=== PATIENT | female | born 1935 | race Asian ===

== ENCOUNTER 2019-06-22 20:48 | Inpatient (IN) | payer MEDICARE, OTHER ==
[~2019-06-22] VITALS: Ht 152.4 cm; Wt 54.4 kg
--- NOTE | 2019-06-22 21:03 | Emergency Room Report ---
History of Present Illness General Chief Complaint: Generalized Weakness Source: Patient, Medical Record Present Illness HPI Is 84-year-old female coming from a [facility]. She has a history of high blood pressure. She presents with chief complaint of noncompliance with medication, not eating, being aggressive at the [facility]. Onset for last few days. Patient denies any symptoms. No nausea no vomiting. No fever chills but denies any other complaint. She says she felt fine. Allergies: Coded Allergies: No Known Allergies (Unverified , 06/22/19) Patient History Past Medical History: see triage record, old chart reviewed, HTN Past Surgical History: none Pertinent Family History: none Social History: Denies: smoking Now: No Immunizations: other Reviewed Nursing Documentation: PMH: Agreed; PSxH: Agreed Review of Systems Eye: Denies: eye pain, blurred vision ENT: Denies: ear pain, nose congestion, throat swelling Respiratory: Denies: cough, shortness of breath Cardiovascular: Denies: chest pain, palpitations Gastrointestinal: Denies: abdominal pain, diarrhea, nausea, vomiting Musculoskeletal: Denies: back pain, joint pain Skin: Denies: rash Neurological: Denies: headache, numbness Endocrine: Denies: increased thirst, increased urine Hematologic/Lymphatic: Denies: easy bruising All Other Systems: negative except mentioned in HPI Physical Exam Vital Signs Date Time Temp Pulse Resp B/P (MAP) Pulse Ox O2 Delivery O2 Flow Rate FiO2 06/22/19 20:44 98.1 76 18 165/66 (99) 97 Room Air Vitals with high blood pressure Sp02 EP Interpretation: reviewed, normal General Appearance: well appearing, no apparent distress, alert Head: normocephalic, atraumatic Eyes: bilateral eye PERRL, bilateral eye EOMI ENT: hearing grossly normal, normal pharynx Neck: full range of motion, supple, no meningismus Respiratory: chest non-tender, lungs clear, normal breath sounds Cardiovascular #1: regular rate, rhythm, no murmur Gastrointestinal: normal bowel sounds, non tender, no mass, no organomegaly, no bruit, non-distended Musculoskeletal: back normal, gait/station normal, normal range of motion Psychiatric: mood/affect normal Medical Decision Making Diagnostic Impression: Primary Impression: Agitation Additional Impressions: UTI (urinary tract infection) Qualified Codes: N30.00 - Acute cystitis without hematuria FTT (failure to thrive) in adult Dehydration ROSALBA (acute kidney injury) ER Course This 84-year-old female presents with agitation and increasing delirium and noncompliance. Probably worsening of her dementia secondary to UTI. Antibiotics given. IV fluids given. I had to sedate patient with Ativan to get blood work and urine. No evidence of CVA, ACS, PE, pneumonia to name a few. I discussed the case with Dr. Elizondo who will admit. EKG Diagnostic Results Rate: normal Rhythm: NSR ST Segments: no acute changes Rhythm Strip Diag. Results EP Interpretation: yes Rate: 80 Rhythm: NSR, no PVC's, no ectopy Chest X-Ray Diagnostic Results Chest X-Ray Diagnostic Results : Chest X-Ray Ordered: Yes # of Views/Limited/Complete: 1 View Indication: Shortness of Breath EP Interpretation: Yes Interpretation: no consolidation, no effusion, no pneumothorax, no acute cardiopulmonary disease Impression: No acute disease Electronically Signed by: Gulshan Fonseca MD Last Vital Signs Date Time Temp Pulse Resp B/P (MAP) Pulse Ox O2 Delivery O2 Flow Rate FiO2 06/22/19 20:44 98.1 76 18 165/66 (99) 97 Room Air Status: improved Disposition: ADMITTED INPATIENT Condition: Serious Gulshan Fonseca MD Jun 22, 2019 21:03
--- NOTE | 2019-06-22 21:10 | NUR ---
ED Nurse Note: Pt brought in by THIAGO from [facility] c/c FTT, AMS, and aggressive behavior. pt currently AA&ox1 but refused to answer question, using foul language, demonstrating combative behavior such as scratching and kicking. ERMD aware of pt's condition. will cont monitor.
[2019-06-22] MEDS ORDERED: LORazepam Inj 2mg/ml 1ml IM ONE (21:30)
[2019-06-22 21:52] LABS: ANION GAP 10 mmol/L (5-15); BLOOD UREA NITROGEN 21 mg/dL (7-18); CALCIUM 9.1 MG/DL (8.5-10.1); CARBON DIOXIDE 23 MMOL/L (21-32); CHLORIDE 112 MMOL/L (98-107); POTASSIUM 3.6 MMOL/L (3.5-5.1); SODIUM 145 MMOL/L (136-145)
[2019-06-22 21:53] LABS: APPEARANCE,URINE CLEAR; BILIRUBIN, URINE NEGATIVE (NEGATIVE); COLOR,URINE PALE YELLOW; GLUCOSE, URINE (UA) NEGATIVE (NEGATIVE); KETONES,URINE NEGATIVE (NEGATIVE); LEUKOCYTE ESTERASE ,URINE 2+ (NEGATIVE); NITRITE,URINE NEGATIVE (NEGATIVE); PH,URINE 6 (4.5-8.0); PROTEIN,URINE 4+ (NEGATIVE); UROBILINOGEN,URINE NORMAL MG/DL (0.0-1.0)
[2019-06-22 22:00] VITALS: BP 150/68
--- NOTE | 2019-06-22 22:00 | NUR ---
ED Nurse Note: pt AA&ox1, gcs=14, confused, skin warm and dry, resp even and unlabored on RA, -n/v/d, noted skin abrasion on right elbow, noted skin discoloration BUE but prominent on left arm, noted pressure ulcer on posterior sacral area. pt vss, sinus rhythm on court recording monitor, will cont monitor.
[2019-06-22 22:04] LABS: BASOPHILS % (AUTO) 0.6 % (0.0-2.0); EOSINOPHILS % (AUTO) 1.5 % (0.0-3.0); HEMATOCRIT 31.3 % (37.0-47.0); HEMOGLOBIN 10.6 G/DL (12.0-16.0); LYMPHOCYTES % (AUTO) 26.4 % (20.0-45.0); MEAN CORPUSCULAR VOLUME 92 FL (80-99); MONOCYTES % (AUTO) 6.2 % (1.0-10.0); NEUTROPHILS % (AUTO) 65.4 % (45.0-75.0); PLATELET COUNT 226 K/UL (150-450); RED CELL DISTRIBUTION WIDTH 13.9 % (11.6-14.8); WHITE BLOOD COUNT 7.8 K/UL (4.8-10.8)
[2019-06-22] MEDS ORDERED: cefTRIAXone 1 GM in NS 55 ML IVPB ONE (22:15)
[2019-06-22] MEDS ORDERED: VITAMIN C500 M1 ORAL (22:25)
[2019-06-22] MEDS ORDERED: PANTOPRAZOLE SO40 MG ORAL (22:26)
[2019-06-22] MEDS ORDERED: OS-CAL 500+D31 EAC1 PO (22:26)
[2019-06-22] MEDS ORDERED: AMLODIPINE BESYL5 MG ORAL (22:27)
[2019-06-22] MEDS ORDERED: ACETAMINOPHEN120 MG ORAL (22:28)
[2019-06-22] MEDS ORDERED: [UNRECOGNIZED DRUG - OTHER] TP (22:28)
[2019-06-22] MEDS ORDERED: CATAPRES0.1 MG ORAL (22:29)
[2019-06-22] MEDS ORDERED: Haloperidol 5mg/ml Inj IM ONE (22:30)
[2019-06-22] MEDS ORDERED: ZINC SULFATE220 M1 ORAL (22:31)
--- NOTE | 2019-06-22 22:37 | NUR ---
ED Nurse Note: REPORT GIVEN TO SHARRON HAMMOND FROM [facility].
--- NOTE | 2019-06-22 22:45 | NUR ---
NURSE NOTES: Received report from SHARRON Hedrick in ER. Awaiting patient.
--- NOTE | 2019-06-22 22:55 | NUR ---
ED Nurse Note: pt transferred to [facility], all belongings sent w/ pt w/ completed list, iv intact and patent, vss, resp even and unlabored on RA, care endorsed to RN Magaly.
--- NOTE | 2019-06-22 23:10 | NUR ---
NURSE NOTES: Received patient via critical power install technician. Patient A&Ox1 to name. On room air, no signs of distress or labored breathing. IV intact, patent, and infusing fluids from ER. Belongings validated. Bed in lowest position with call light in reach. Will contact MD for orders and continue to monitor.
[2019-06-22 23:15] VITALS: BP 169/68
[2019-06-23 04:00] VITALS: BP 160/72
[2019-06-23] MEDS ORDERED: Aluminum Hydroxide Gel Susp 15ml ORAL PRN (04:30)
[2019-06-23] MEDS ORDERED: Vancomycin 1gm in D5W 275ml IVPB SCH (05:00)
--- NOTE | 2019-06-23 07:16 | NUR ---
HAND-OFF: Report given to SHARRON Ibrahim.
[2019-06-23 07:20] LABS: BASOPHILS % (AUTO) 0.8 % (0.0-2.0); EOSINOPHILS % (AUTO) 2.8 % (0.0-3.0); HEMATOCRIT 29.7 % (37.0-47.0); HEMOGLOBIN 9.8 G/DL (12.0-16.0); LYMPHOCYTES % (AUTO) 26.3 % (20.0-45.0); MEAN CORPUSCULAR VOLUME 93 FL (80-99); MONOCYTES % (AUTO) 6.2 % (1.0-10.0); NEUTROPHILS % (AUTO) 63.9 % (45.0-75.0); PLATELET COUNT 222 K/UL (150-450); RED BLOOD COUNT 3.19 M/UL (4.20-5.40); RED CELL DISTRIBUTION WIDTH 13.9 % (11.6-14.8); WHITE BLOOD COUNT 6.8 K/UL (4.8-10.8)
--- NOTE | 2019-06-23 07:30 | NUR ---
NURSE NOTES: Received pt from SHARRON HAMMOND. pt is confused and orient x1. pt is in RA, no SOB or acute respiratory distress noted. pt has intact iv access LAC 20g is running well. pt is eating breakfast independently. all needs attended, bed is locked and is in the lowest position. call light within easy reach. will continue to monitor.
[2019-06-23 07:37] LABS: ANION GAP 10 mmol/L (5-15); BLOOD UREA NITROGEN 18 mg/dL (7-18); CALCIUM 8.6 MG/DL (8.5-10.1); CARBON DIOXIDE 23 MMOL/L (21-32); CHLORIDE 116 MMOL/L (98-107); CREATININE 1.7 MG/DL (0.55-1.30); POTASSIUM 3.1 MMOL/L (3.5-5.1); SODIUM 149 MMOL/L (136-145)
[2019-06-23 08:00] VITALS: BP 103/53
[2019-06-23] MEDS: Calcium Carbonate 500mg w/Vit D 200iu tab ORAL SCH (09:16)
[2019-06-23] MEDS: Piperacillin/Tazobactam 3.375 GM in NS 110 ML IVPB SCH ×2 (09:17→20:29)
[2019-06-23] MEDS: Zinc Sulfate 220mg cap ORAL SCH (09:17)
[2019-06-23] MEDS: Ascorbic Acid 500mg tab ORAL SCH (09:17)
[2019-06-23] MEDS: Heparin 5000 units/ml inj SUBQ SCH ×2 (09:18→20:37)
--- NOTE | 2019-06-23 10:25 | NUR ---
NURSE NOTES: dR mejia VISITED PT AND HE IS AWARE ABOUT L hand swollen and K 3.1, given order KCL 40MEQ PO ONCE and MRI L HAND NO CONTRAST. noted and carried out. will continue to monitor.
[2019-06-23 12:00] VITALS: BP 168/67
--- NOTE | 2019-06-23 13:18 | Cardiology Report ---
APPROVED REPORT EKG Measurement Heart [id number] OR [id number] Sinus rhythm with sinus arrhythmia with fusion complexes Nonspecific ST and T wave abnormality Abnormal ECG
[2019-06-23 14:00] VITALS: BP 149/62
[2019-06-23 16:00] VITALS: BP 130/72
--- NOTE | 2019-06-23 16:57 | NUR ---
CASE MANAGEMENT: INITIAL REVIEW 84 YO F ALEX FROM [facility] CC: NONCOMPLIANCE W/ MEDS PMHx: HTN. SI:FTT. UTI. T 98.1 HR 76 RR 18 B/P 165/66 SATS 97% ON RA CL 112 BUN 21 CR 2 GLU 120 IS: NS BOLUS X1 ATIVAN IV X1 ROCEPHIN IV X1 HALDOL IM X1 PATIENT ADMITTED TO MED/SURG 06/22/2019 @ 0337 DCP: PATIENT TO BE DISCHARGED TO SNF ONCE MEDICALLY CLEARED. PLAN OF CARE: CT HEAD PENDING MRI LEFT HAND PENDING PT EVAL Addendum: 06/23/19 at 1826 by Imelda Brown CM INTERQUAL
--- NOTE | 2019-06-23 17:00 | History and Physical Report ---
DATE OF ADMISSION: 06/22/2019 REASON FOR ADMISSION: Altered sensorium, urinary tract infection, acute renal failure, hypernatremia. HISTORY OF PRESENT ILLNESS: This is an 84-year-old female noted to be altered, hypertension, and was noted to be more labile. The patient also noted to be more aggressive and more confused. The patient was sent over for evaluation, has been admitted for the above noted possibly urinary tract infection, acute renal failure, and worsening altered mental status. The patient to some extent appears to be confused. The care discussed and reviewed. The patient's care at the alf as well reviewed. PAST MEDICAL HISTORY: Notable for prior history of sepsis, hypertension, dementia, history of wrist fracture, and osteoporosis. MEDICATIONS: Reviewed. ALLERGIES: Reviewed. SOCIAL HISTORY: The patient previously was at home, but unable to care for herself, so recently transferred to the alf. REVIEW OF SYSTEMS: Difficult to obtain. The patient however denies any significant findings at this time. She has been more agitated. She has some wrist pain. PHYSICAL EXAMINATION: GENERAL: A well-developed female. VITAL SIGNS: Blood pressure 103/53, pulse 68, respiratory rate 19, saturation 96%, temperature is 98.1. HEENT: Negative. Extraocular movements are grossly intact. Oropharynx moist. NECK: Supple. LUNGS: Fairly clear and symmetric. No rhonchi or wheezes. CARDIAC: S1, S2. Regular rate and rhythm without murmurs, rubs, or gallops. ABDOMEN: Soft, nontender, nondistended. EXTREMITIES: No cyanosis or clubbing. No edema. NEUROLOGICAL: The patient appears to be confused, nonfocal, not fully appropriate. SKIN: Noted. LABORATORY DATA: Reviewed. Sodium 149, potassium 3.1, BUN 18, creatinine 1.7. Troponin negative. Hemoglobin 9.8. Urinalysis with 5 to 10 white cells. IMPRESSION: 1. Possible urinary tract infection. 2. Altered sensorium. 3. Possible toxic metabolic encephalopathy. 4. Hypertension. 5. Evidence of anemia. 6. Possible GI bleed. 7. Acute renal failure. 8. Hypernatremia. 9. Possible neurological event. 10. Wrist fracture per history. RECOMMENDATIONS: Supportive care. Monitor clinically. IV hydration, IV antibiotics. Obtain renal evaluation. Obtain GI evaluation. Obtain CT of the head. Obtain Psychiatric evaluation. Obtain PT evaluation. We will discuss further with family as to plan of care and disposition. Royer Elizondo M.D. DR: PAMELA JOB#: [id number] CC:
--- NOTE | 2019-06-23 19:26 | NUR ---
HAND-OFF: Report given to THU MCDERMOTT.
--- NOTE | 2019-06-23 19:42 | NUR ---
NURSE NOTES: Received report from SHARRON Ibrahim. Patient is in bed, awake and confused. On room air with no signs of distress or SOB. IV is intact and running fluids at this time. No c/o pain at this time. Bed is locked and in lowest position with bed alarm activated. Call light in reach. Will continue to monitor.
[2019-06-23 20:00] VITALS: BP 156/69
[2019-06-24] VITALS: BP 141/60
[2019-06-24 04:00] VITALS: BP 163/69
--- NOTE | 2019-06-24 07:08 | NUR ---
HAND-OFF: Report given to SHARRON Garcia.
[2019-06-24 07:51] LABS: BASOPHILS % (AUTO) 0.8 % (0.0-2.0); EOSINOPHILS % (AUTO) 3.7 % (0.0-3.0); HEMATOCRIT 25.3 % (37.0-47.0); HEMOGLOBIN 8.4 G/DL (12.0-16.0); LYMPHOCYTES % (AUTO) 30.4 % (20.0-45.0); MEAN CORPUSCULAR VOLUME 94 FL (80-99); MONOCYTES % (AUTO) 9.3 % (1.0-10.0); NEUTROPHILS % (AUTO) 55.8 % (45.0-75.0); PLATELET COUNT 183 K/UL (150-450); WHITE BLOOD COUNT 6.3 K/UL (4.8-10.8)
[2019-06-24 08:00] VITALS: BP 120/66
[2019-06-24 08:03] LABS: ANION GAP 9 mmol/L (5-15); BLOOD UREA NITROGEN 16 mg/dL (7-18); CALCIUM 8.2 MG/DL (8.5-10.1); CARBON DIOXIDE 20 MMOL/L (21-32); CHLORIDE 117 MMOL/L (98-107); CREATININE 1.7 MG/DL (0.55-1.30); POTASSIUM 3.9 MMOL/L (3.5-5.1); SODIUM 146 MMOL/L (136-145)
--- NOTE | 2019-06-24 08:16 | NUR ---
NURSE NOTES: Pt awake, A/O x 2, forgetful. Sacral/L hip dressing in place. denies pain. no SOB noted. bed alarm on. call light within reach. fall precaution maintained. will continue to monitor.
--- NOTE | 2019-06-24 08:54 | General Progress Note ---
Assessment/Plan Assessment/Plan: IMPRESSION: 1. Possible urinary tract infection. 2. Altered sensorium. 3. Possible toxic metabolic encephalopathy. 4. Hypertension. 5. Evidence of anemia. 6. Possible GI bleed. 7. Acute renal failure. 8. Hypernatremia. 9. Possible neurological event. 10. Wrist fracture per history. PLAN anemia worsened gi follow up sodium still elevated- renal eval await MRI of wrist PT evaluation monitor for falls impression, plan, and exam edited and reviewed in detail care discussed with RN Subjective Allergies: Coded Allergies: No Known Allergies (Unverified , 06/22/19) Subjective care noted and reviewed all appreciated findings discussed Objective Last 24 Hour Vital Signs Date Time Temp Pulse Resp B/P (MAP) Pulse Ox O2 Delivery O2 Flow Rate FiO2 06/24/19 04:26 163/69 06/24/19 04:00 98.1 79 18 163/69 (100) 98 06/24/19 00:00 98.0 82 18 141/60 (87) 98 06/23/19 22:39 156/69 06/23/19 21:00 Room Air 06/23/19 20:00 97.7 95 18 156/69 (98) 96 06/23/19 16:00 97.8 86 19 130/72 (91) 97 06/23/19 14:00 149/62 (91) 06/23/19 12:14 168/67 06/23/19 12:00 98.0 80 18 168/67 (100) 99 06/23/19 09:17 68 103/53 06/23/19 09:00 Room Air Intake and Output 06/23/19 06/24/19 19:00 07:00 Intake Total 2110.0 ml 1280 ml Balance 2110.0 ml 1280 ml Intake Oral 480 ml IV Total 1310.0 ml 800 ml Other 800 ml # Voids 4 # Bowel Movements 3 Laboratory Tests 06/24/19 06:45: White Blood Count 6.3, Red Blood Count 2.70L, Hemoglobin 8.4L, Hematocrit 25.3L , Mean Corpuscular Volume 94, Mean Corpuscular Hemoglobin 31.2H, Mean Corpuscular Hemoglobin Concent 33.3, Red Cell Distribution Width 14.0, Platelet Count 183, Mean Platelet Volume 7.6, Neutrophils (%) (Auto) 55.8, Lymphocytes (% ) (Auto) 30.4, Monocytes (%) (Auto) 9.3, Eosinophils (%) (Auto) 3.7H, Basophils (%) (Auto) 0.8, Sodium Level 146H, Potassium Level 3.9, Chloride Level 117H, Carbon Dioxide Level 20L, Anion Gap 9, Blood Urea Nitrogen 16, Creatinine 1.7H, Estimat Glomerular Filtration Rate , Glucose Level 87, Calcium Level 8.2L Height (Feet): 5 Height (Inches): 0.00 Weight (Pounds): 120 Objective GENERAL: A well-developed female. NAD HEENT: Negative. Extraocular movements are grossly intact. Oropharynx moist. NECK: Supple. LUNGS: Fairly clear and symmetric. No rhonchi or wheezes. CARDIAC: S1, S2. Regular rate and rhythm without murmurs, rubs, or gallops. ABDOMEN: Soft, nontender, nondistended. no HSM EXTREMITIES: No cyanosis or clubbing. No edema. mild discomfort left writs NEUROLOGICAL: The patient appears to be confused, nonfocal, pleasant SKIN: Noted. Royer Elizondo MD Jun 24, 2019 08:54
[2019-06-24] MEDS: Calcium Carbonate 500mg w/Vit D 200iu tab ORAL SCH (09:14)
[2019-06-24] MEDS: Ascorbic Acid 500mg tab ORAL SCH (09:14)
[2019-06-24] MEDS: Zinc Sulfate 220mg cap ORAL SCH (09:14)
[2019-06-24] MEDS: Heparin 5000 units/ml inj SUBQ SCH ×2 (09:17→20:40)
[2019-06-24] MEDS: Piperacillin/Tazobactam 3.375 GM in NS 110 ML IVPB SCH ×2 (09:18→20:31)
[2019-06-24 12:00] VITALS: BP 122/63
--- NOTE | 2019-06-24 13:04 | Diagnostic Imaging Report ---
CT HEAD: No acute intracranial process. Involutional changes with small vessel disease. Encephalomalacia centered in the left temporal lobe. Surgical changes in the left calvarium. 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 Right mastoidectomy.
--- NOTE | 2019-06-24 13:33 | NUR ---
RD ASSESSMENT & RECOMMENDATIONS SEE CARE ACTIVITY FOR COMPLETE ASSESSMENT DAILY ESTIMATED NEEDS: Needs based on Wound, 54.5kg 25-35 kcals/kg 4864-6504 total kcals 1.25-1.5 g protein/kg 68-82 g total protein 25-30ml/kcal mL/kg 9458-2187 total fluid mLs NUTRITION DIAGNOSIS: Increased pro needs r/t wound healing as evidenced by L hip open wound, sacral redness. CURRENT DIET: MS chopped PO DIET RECOMMENDATIONS: Regular diet/ texture per TAR ROOFER ADDITIONAL RECOMMENDATIONS: 1) Obtain a accurate CBW 2) F/up w/ Wound care eval: add NIXON BID 3) PO intake is variable, rec added snacks Ensure qdaily 4) Monitor hydration status/ elev NA
[2019-06-24 16:00] VITALS: BP 131/67
--- NOTE | 2019-06-24 16:19 | NUR ---
NURSE NOTES: pt depressed, stated that she doesn't want to live, left message to MD, for psych consult, waiting for call back. will continue to monitor.
--- NOTE | 2019-06-24 16:48 | NUR ---
PT Note PT ketan completed, treatment initiated. Patient has muscle weakness and decreased postural stability making her at a risk for falls. Patient needs PT to increase her muscle strength and balance to improve her safety in mobility and gait. Addendum: 06/24/19 at 1649 by ANDER HUNT PT Amended: Links added.
[2019-06-24] MEDS ORDERED: Vancomycin 1gm in D5W 275ml IVPB SCH (18:00)
--- NOTE | 2019-06-24 18:30 | Consultation ---
DATE OF CONSULTATION: 06/24/2019 CONSULTING PHYSICIAN: Lavon Kenny M.D. CHIEF COMPLAINT: Anemia. HISTORY OF PRESENT ILLNESS: Most of the history obtained per chart. This is an 84-year-old female patient was transferred altered mental status and hypertension. The patient being more aggressive, not eating well, and also the patient was found to be anemic. So, GI consult has been requested for evaluation. The patient is a poor historian. PAST MEDICAL HISTORY: 1. Hypertension. 2. Dementia. 3. Osteoporosis. ALLERGIES: No known drug allergies. MEDICATIONS: Please see medication reconciliation list. SOCIAL HISTORY: Currently lives in a retirement. No recent history of tobacco, alcohol, or drug abuse. REVIEW OF SYSTEMS: Limited. PAST SURGICAL HISTORY: Unknown. PHYSICAL EXAMINATION: VITAL SIGNS: Temperature is 98, pulse 79, respirations 18, blood pressure is 160/69. HEENT: Normocephalic and atraumatic conjunctiva. NECK: Supple. No obvious evidence of lymphadenopathy. CARDIOVASCULAR: Regular rate and rhythm. Plus S1 and S2. LUNGS: Clear to auscultation bilaterally. ABDOMEN: Positive bowel sounds. Soft and nontender. No rebound. No guarding. No peritoneal sign. EXTREMITIES: No cyanosis, no clubbing, no edema. LABORATORY DATA: White count 6.8, hemoglobin 9.8, hematocrit 29.7, platelet count is 222. Chem-7, sodium 149, potassium 3.1, BUN is 18, creatinine is 1.7. UA was very abnormal and urine culture was positive for gram-positive cocci. ASSESSMENT AND PLAN: This is an 84-year-old female with UTI, anemia seems to be chronic, renal insufficiency with creatinine of 1.7 anemia. Plan to hold off the GI procedure at this time, the patient antibiotics for UTI. We will send iron panel, B12, folate. We will send the stool for occult blood. We will monitor hemoglobin and hematocrit. Consider endoscopy or colonoscopy as the patient shows signs and symptoms of GI bleeding. I want to thank, Dr. Elizondo, for this kind referral. Lavon Kenny M.D. DR: ROICO JOB#: [id number] CC: Royer Elizondo M.D.; Fax#: [phone]
--- NOTE | 2019-06-24 19:53 | NUR ---
NURSE NOTES: Received report from SHARRON Garcia. Patient is in bed, awake and alert x2. On room air with no signs of distress or SOB. Family is at bedside. No c/o pain at this time. IV intact and running fluids. Bed is locked and in lowest position. Bed alarm on. Will continue to monitor the patient.
[2019-06-24 20:00] VITALS: BP 145/58
[2019-06-24] MEDS ORDERED: OLANZapine 2.5mg tab ORAL SCH (21:00)
[2019-06-24] MEDS: Zolpidem 5mg tab ORAL PRN (22:28)
[2019-06-25] VITALS (7 sets, daily range): BP systolic 125–189; BP diastolic 64–84
--- NOTE | 2019-06-25 06:02 | NUR ---
NURSE NOTES: Patient became combative and striking the staff. Patient is confused and unaware of her current location. Contacted Dr. Elizondo who referred me to Dr. Luna. Waiting for callback.
[2019-06-25 06:58] LABS: ANION GAP 11 mmol/L (5-15); BLOOD UREA NITROGEN 12 mg/dL (7-18); CALCIUM 8.9 MG/DL (8.5-10.1); CARBON DIOXIDE 20 MMOL/L (21-32); CHLORIDE 115 MMOL/L (98-107); CREATININE 1.7 MG/DL (0.55-1.30); POTASSIUM 3.7 MMOL/L (3.5-5.1); SODIUM 146 MMOL/L (136-145)
[2019-06-25 07:08] LABS: EOSINOPHILS % (AUTO) 5.2 % (0.0-3.0); HEMATOCRIT 30.4 % (37.0-47.0); HEMOGLOBIN 9.9 G/DL (12.0-16.0); LYMPHOCYTES % (AUTO) 35.6 % (20.0-45.0); MEAN CORPUSCULAR VOLUME 95 FL (80-99); MONOCYTES % (AUTO) 7.5 % (1.0-10.0); NEUTROPHILS % (AUTO) 50.8 % (45.0-75.0); PLATELET COUNT 246 K/UL (150-450); RED BLOOD COUNT 3.22 M/UL (4.20-5.40); RED CELL DISTRIBUTION WIDTH 14.6 % (11.6-14.8); WHITE BLOOD COUNT 8.3 K/UL (4.8-10.8)
[2019-06-25 07:16] LABS: % IRON SATURATION 62 % (15-50); IRON 86 ug/dL (50-175); TOTAL IRON BINDING CAPACITY 139 ug/dL (250-450)
--- NOTE | 2019-06-25 07:30 | NUR ---
HAND-OFF: Report given to SHARRON Strauss.
--- NOTE | 2019-06-25 07:41 | NUR ---
NURSE NOTES: Received report from SHARRON Cruz. Pt is laying in bed asking for a cigarette and adelia try. She is alert and oriented X1. Bed is in lowest position, side rails up X2, and call light is within reach. WIll continue to monitor.
--- NOTE | 2019-06-25 07:51 | NUR ---
NURSE NOTES: Received call from Dr. Luna regarding patient. Orders noted and carried out
--- NOTE | 2019-06-25 08:46 | General Progress Note ---
Assessment/Plan Assessment/Plan: IMPRESSION: 1. Possible urinary tract infection. 2. Altered sensorium./ dementia/agitation 3. Possible toxic metabolic encephalopathy. 4. Hypertension. 5. Evidence of anemia. 6. Possible GI bleed. 7. Acute renal failure. 8. Hypernatremia. 9. Possible neurological event. 10. Wrist fracture per history. PLAN anemia work up gi follow up sodium still elevated- renal eval pending await MRI of wrist- still not done PT evaluation monitor for falls psych assistance with noncompliance and agitation impression, plan, and exam edited and reviewed in detail care discussed with RN Subjective Allergies: Coded Allergies: No Known Allergies (Unverified , 06/22/19) Subjective care noted and reviewed all appreciated findings discussed confused and agitated overnight Objective Last 24 Hour Vital Signs Date Time Temp Pulse Resp B/P (MAP) Pulse Ox O2 Delivery O2 Flow Rate FiO2 06/25/19 04:00 97.4 76 18 125/64 (84) 99 06/25/19 02:40 167/84 (111) 06/25/19 02:39 167/84 06/25/19 00:00 97.7 86 18 149/68 (95) 100 06/24/19 21:00 Room Air 06/24/19 20:00 97.9 88 16 145/58 (87) 98 06/24/19 16:00 98.2 81 18 131/67 (88) 98 06/24/19 14:46 98.0 06/24/19 12:00 98.0 72 18 122/63 (82) 98 06/24/19 09:14 80 120/66 06/24/19 09:00 Room Air Intake and Output 06/24/19 06/25/19 19:00 07:00 Intake Total 800 ml 240 ml Balance 800 ml 240 ml Intake Oral 240 ml Other 800 ml # Voids 4 # Bowel Movements 1 2 Laboratory Tests 06/24/19 16:30: Random Vancomycin Level 8.3 06/24/19 21:35: Stool Occult Blood Negative 06/25/19 06:00: White Blood Count 8.3, Red Blood Count 3.22L, Hemoglobin 9.9L, Hematocrit 30.4L , Mean Corpuscular Volume 95, Mean Corpuscular Hemoglobin 30.8, Mean Corpuscular Hemoglobin Concent 32.5, Red Cell Distribution Width 14.6, Platelet Count 246, Mean Platelet Volume 7.8, Neutrophils (%) (Auto) 50.8, Lymphocytes (% ) (Auto) 35.6, Monocytes (%) (Auto) 7.5, Eosinophils (%) (Auto) 5.2H, Basophils (%) (Auto) 1.0, Sodium Level 146H, Potassium Level 3.7, Chloride Level 115H, Carbon Dioxide Level 20L, Anion Gap 11, Blood Urea Nitrogen 12, Creatinine 1.7H , Estimat Glomerular Filtration Rate , Glucose Level 100, Calcium Level 8.9, Iron Level [Pending], Unsaturated Iron Binding [Pending], Vitamin B12 Level [ Pending], Folate [Pending] Height (Feet): 5 Height (Inches): 0.00 Weight (Pounds): 120 Objective GENERAL: A well-developed female. NAD HEENT: Negative. Extraocular movements are grossly intact. Oropharynx moist. NECK: Supple. LUNGS: Fairly clear and symmetric. No rhonchi or wheezes. CARDIAC: S1, S2. Regular rate and rhythm without murmurs, rubs, or gallops. ABDOMEN: Soft, nontender, nondistended. no HSM EXTREMITIES: No cyanosis or clubbing. No edema. mild discomfort left writs NEUROLOGICAL: The patient appears to be confused, nonfocal, pleasant SKIN: Noted. Royer Elizondo MD Jun 25, 2019 08:46
[2019-06-25] MEDS: Calcium Carbonate 500mg w/Vit D 200iu tab ORAL SCH (09:09)
[2019-06-25] MEDS: Piperacillin/Tazobactam 3.375 GM in NS 110 ML IVPB SCH ×2 (09:10→20:21)
[2019-06-25] MEDS: Ascorbic Acid 500mg tab ORAL SCH (09:10)
[2019-06-25] MEDS: OLANZapine 2.5mg tab ORAL SCH ×2 (09:10→14:21)
[2019-06-25] MEDS: Zinc Sulfate 220mg cap ORAL SCH (09:11)
[2019-06-25] MEDS: Heparin 5000 units/ml inj SUBQ SCH ×2 (09:11→20:29)
--- NOTE | 2019-06-25 09:14 | NUR ---
06/25..PER DR. PALOMARES, PT HAS AN UNKNOWN METALLIC OBJECT WITHIN BRAIN, WHICH IS A SAFETY CONCERN FOR MRI. ALSO, PT UNABLE TO STAY STILL FOR THE APPROX. [address] JIANG HAS BEEN INFORMED AND CHANGED ORDER TO CT, PER SHARRON LEDBETTER. TJB 09:14
--- NOTE | 2019-06-25 10:25 | NUR ---
PT NOTE Per Rica MCDERMOTT and Antonino RN patient is currently confused and combative, is not appropriate for skilled PT intervention at this time. Will re-attempt later as schedule permits.
--- NOTE | 2019-06-25 10:25 | NUR ---
NURSE NOTES: Pt is combative. She tried to bite nurse fingers and scratch. She is cussing and has her blanket over her face because she "does not want to look at me" and states that "I am suffocating her". Called Nurse Antonino to help me with the patient. Pt was calmer with other nurse. WIll continue to monitor.
--- NOTE | 2019-06-25 11:15 | Consultation ---
DATE OF CONSULTATION: 06/23/2019 CONSULTING PHYSICIAN: Theodora Luna M.D. HISTORY OF PRESENT ILLNESS: This is an 84-year-old female with a history of hypertension as well as dementia. pt was admitted to the hospital due to urinary tract infection, more confusion, hypernatremia. The patient was able to answer the questions appropriately and was paranoid. The patient believes month and has related was able to answer the questions appropriately. PAST PSYCHIATRY HISTORY: Significant for anxiety disorder, the patient has been taking Ativan in the past and cognitive impairment. PAST MEDICAL HISTORY: Significant for osteoporosis, acute kidney injury, urinary tract disease. ALLERGIES: No known drug allergies. SUBSTANCE ABUSE HISTORY: No known history of illicit drug use or alcohol. MENTAL STATUS EXAMINATION: The patient is alert and oriented times self, place, date, and month. Mood is anxious. Affect is blunted, congruent with mood. Thought process, linear and goal oriented. Thought content, no suicidal or homicidal ideation. Cognition is impaired. Insight and judgment is impaired. ASSESSMENT: Montgomery I Acute encephalopathy. Montgomery II Deferred. Montgomery III As above. Montgomery IV Low. Montgomery V 20. PLAN: 1. The patient will be started on Zyprexa 2.5 mg at bedtime. 2. Provide the patient with reality orientation and supportive therapy. Theodora Luna M.D. DR: PRANAV JOB#: [id number] CC: TOÑO
[2019-06-25] MEDS ORDERED: Isovue-300 100ml vial INJ PRN (12:00)
--- NOTE | 2019-06-25 14:36 | Diagnostic Imaging Report ---
Indication: Left hand pain Technique: Consent helical imaging in the transaxial plane of the left hand was performed. Coronal 2-D reformatted images were also generated. Study obtained in a Siemens Sensation [address] total DLP: 326 mGycm CTD/vol: 0.15 x 3, 11.52 mGy Comparison: None Findings: Bones are osteopenic. No acute fracture is identified. Alignment is anatomic. Joint space narrowing and periarticular osteophytes noted at several locations within the wrist, carpal bones and digits. Findings consistent with osteoarthritis. There is soft tissue swelling involving the wrist. IMPRESSION: Osteoarthritis. Generalized soft tissue swelling involving the wrist nonspecific. The CT scanner at [facility] is accredited by the [employer] and the scans are performed using dose optimization techniques as appropriate to a performed exam including Automatic Exposure control.
--- NOTE | 2019-06-25 15:18 | NUR ---
NURSE NOTES:WOUND CARE NOTES:Pt presented on admission with raised full thickness wound L hip. Base of wound 90% pink granulation,10% slough. Periwound indurated. Pt denied pain when site around wound palpated. (L)3cm x (W)1.5cm.No odor or exudate noted. Resolving pressure injury L buttocks. Dry pink epithelial noted at base of wound. Edges flat and adherent to base of wound. No exudate noted. (L)0.8cm x (W)3.5cm. Both heels are soft but blanchable. Tx.Plan: Cleanse wound L hip with Saline. Apply Therahoney. Aply Cavilon periwound. Cover with Optifoam drsg. Change every 3 days and prn. Apply Moisture Barrier Paste to buttocks with each perineal care. Apply Cavilon Skin BArrier to both heels. Cover each heel with Optifoam drsg. Change every 7 days and prn. Reposition at least every 2hours or as tolerated. Off-load heels with pillow.
--- NOTE | 2019-06-25 16:50 | NUR ---
[facility] NOTES INQUIRY FAXED TO [facility] IN [place]. WILL FOLLOW UP.
--- NOTE | 2019-06-25 16:55 | NUR ---
*-* DISCHARGE PLANNING *-* PATIENT HAS BEEN REFERRED TO: [facility] P: [phone] F: [phone]
--- NOTE | 2019-06-25 19:25 | NUR ---
HAND-OFF: Report given to Eloise Vazquez. Plan of care endorsed
--- NOTE | 2019-06-25 19:30 | NUR ---
NURSE NOTES: Received a report from SHARRON Strauss. Pt is agitated. AOX1. Able to make needs known. On room air. No pain/discomfort noted. IV site is patent and intact. Bed in lowest position. Bed alarm is on. Call light within reach. Will continue to monitor.
--- NOTE | 2019-06-25 20:08 | General Progress Note ---
Assessment/Plan Assessment/Plan: Assessment - Anemia - OB (-) stools and no Iron deficiency - Azotemia - free water deficit - OBS - HTN - Osteoporosis Recommendations - push po - follow CBC - push fluids - no plans for EGD/Colon per family request Subjective Allergies: Coded Allergies: No Known Allergies (Unverified , 06/22/19) Subjective above noted no complaints d/w Grand daughter Nayeli, who spoke with daughter Melissa Finding of anemia and possible diagnoses reviewed Family does not want Endoscopy or colonoscopy given patient age and dementia Objective Last 24 Hour Vital Signs Date Time Temp Pulse Resp B/P (MAP) Pulse Ox O2 Delivery O2 Flow Rate FiO2 06/25/19 16:00 98.0 64 19 127/79 (95) 97 06/25/19 12:00 98.9 82 18 131/69 (89) 97 06/25/19 09:10 79 126/68 06/25/19 09:00 Room Air 06/25/19 08:00 97.8 79 17 126/68 (87) 97 06/25/19 04:00 97.4 76 18 125/64 (84) 99 06/25/19 02:40 167/84 (111) 06/25/19 02:39 167/84 06/25/19 00:00 97.7 86 18 149/68 (95) 100 06/24/19 21:00 Room Air 06/24/19 20:00 97.9 88 16 145/58 (87) 98 Intake and Output 06/24/19 06/25/19 18:59 06:59 Intake Total 800 ml 240 ml Balance 800 ml 240 ml Intake Oral 240 ml Other 800 ml # Voids 4 # Bowel Movements 1 2 Laboratory Tests 06/24/19 21:35: Stool Occult Blood Negative 06/25/19 06:00: White Blood Count 8.3, Red Blood Count 3.22L, Hemoglobin 9.9L, Hematocrit 30.4L , Mean Corpuscular Volume 95, Mean Corpuscular Hemoglobin 30.8, Mean Corpuscular Hemoglobin Concent 32.5, Red Cell Distribution Width 14.6, Platelet Count 246, Mean Platelet Volume 7.8, Neutrophils (%) (Auto) 50.8, Lymphocytes (% ) (Auto) 35.6, Monocytes (%) (Auto) 7.5, Eosinophils (%) (Auto) 5.2H, Basophils (%) (Auto) 1.0, Sodium Level 146H, Potassium Level 3.7, Chloride Level 115H, Carbon Dioxide Level 20L, Anion Gap 11, Blood Urea Nitrogen 12, Creatinine 1.7H , Estimat Glomerular Filtration Rate , Glucose Level 100, Calcium Level 8.9, Iron Level 86, Total Iron Binding Capacity 139L, Percent Iron Saturation 62H, Unsaturated Iron Binding 53L, Vitamin B12 Level 752, Folate 11.5 Height (Feet): 5 Height (Inches): 0.00 Weight (Pounds): 120 Objective Debilitated elderly woman NCAT supple CTA RR Abd soft no edema OBS Hunter Rawls MD Jun 25, 2019 20:08
[2019-06-25] MEDS: Zolpidem 5mg tab ORAL PRN (21:09)
--- NOTE | 2019-06-25 23:45 | Progress Note ---
DATE: 06/25/2019 SUBJECTIVE: The patient is in bed, in no acute distress. Sleep, arousable. The patient was aggressive earlier this morning with her nurse. The patient also made some statements that she was suicidal, wanted to jump out of the bed, more confused than previous encounter. She was unable to provide any history, using profanity. MENTAL STATUS EXAMINATION: The patient is alert, confused, disoriented. Mood is anxious. Affect is flat. Thought process is concrete. Thought content, no suicidal or homicidal ideations. ASSESSMENT: 1. Psychotic disorder. 2. Cognitive impairment. 3. Acute encephalopathy. PLAN: 1. We will continue the Zyprexa 2.5 mg at bedtime. 2. Prozac 20 mg in the morning. 3. We will continue to follow and adjust the medication. Theodora Luna M.D. DR: AMANDA JOB#: [id number] CC:
[2019-06-26] VITALS (7 sets, daily range): BP systolic 142–189; BP diastolic 76–92
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
--- NOTE | 2019-06-26 00:50 | NUR ---
NURSE NOTES: Ruth MCDERMOTT put an emergent restraints to keep the patient safe. Called Dr. Elizondo and Dr. Luna to inform them about the incident, and asked for an order for restraints. Awaiting for call back.
--- NOTE | 2019-06-26 00:50 | NUR ---
NURSE NOTES: Called Dr. Elizondo and Dr. Luna to inform them that the pt got very confused and agitated. As a result, pt fell.
--- NOTE | 2019-06-26 01:20 | NUR ---
NURSE NOTES: Called Dr. Elizondo and Dr. Luna again to inform them that the pt got very confused and agitated. As a result, pt fell. Charge Nurse Jennifer made aware.
--- NOTE | 2019-06-26 01:49 | NUR ---
NURSE NOTES: Ruth MCDERMOTT removed the temporary restraints because Drs. Elizondo and Cheryl were not able to call back. Pt got transferred to [facility] for safe monitoring. Charge Nurse Jennifer made aware.
--- NOTE | 2019-06-26 01:50 | NUR ---
NURSE NOTES: Called Dr. Elizondo and Dr. Luna for the third time to inform them that the pt got very confused and agitated. As a result, pt fell. Charge Nurse Jennifer made aware.
--- NOTE | 2019-06-26 02:25 | NUR ---
Dr. Elizondo called via his cell phone./ No response /tried home phone. Informed about pt's fall . Left orders.Ok to do CT scan of the head.
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
--- NOTE | 2019-06-26 06:15 | NUR ---
NURSE NOTES: Left a voicemail to the grand-daughter of the pt, Gage, to inform her that the pt fell. Awaiting for call back. Charge Nurse Jennifer made aware.
--- NOTE | 2019-06-26 06:31 | NUR ---
NURSE NOTES: Pt removed her IV. Tried to insert one, but the pt refused despite education provided.
--- NOTE | 2019-06-26 07:20 | NUR ---
NURSE NOTES: Patient received in stable condition, patient agitated, wanting to get out of bed. Patient re-oriented to place and purpose. Breathing unlabored on room air. Ambulatory with weak gait. No signs of pain or SOB observed. Call light placed within reach, will continue to monitor.
--- NOTE | 2019-06-26 07:21 | NUR ---
HAND-OFF: Report given to Ayleen Wells RN. Endorsed to SHARRON Abbasi, that the pt has no IV access. She will try to insert one.
--- NOTE | 2019-06-26 08:58 | General Progress Note ---
Assessment/Plan Assessment/Plan: IMPRESSION: 1. Possible urinary tract infection. 2. Altered sensorium./ dementia/agitation 3. Possible toxic metabolic encephalopathy. 4. Hypertension. 5. Evidence of anemia. 6. Possible GI bleed. 7. Acute renal failure. 8. Hypernatremia. 9. Possible neurological event. 10. Wrist fracture per history. PLAN anemia work up gi follow up try to get Ct of wrist head CT reviewed needs improved control of agitation PT evaluation monitor for falls psych assistance with noncompliance and agitation not safe for dc impression, plan, and exam edited and reviewed in detail care discussed with RN Subjective Allergies: Coded Allergies: No Known Allergies (Unverified , 06/22/19) Subjective care noted and reviewed all appreciated had another fall refusing care pulling out iv Objective Last 24 Hour Vital Signs Date Time Temp Pulse Resp B/P (MAP) Pulse Ox O2 Delivery O2 Flow Rate FiO2 06/26/19 04:07 97.8 100 20 145/76 (99) 96 06/26/19 00:45 97.8 98 06/26/19 00:00 97.8 95 19 142/79 (100) 98 06/25/19 21:09 189/78 06/25/19 21:00 Room Air 06/25/19 20:00 97.5 95 19 189/78 (115) 99 06/25/19 16:00 98.0 64 19 127/79 (95) 97 06/25/19 12:00 98.9 82 18 131/69 (89) 97 06/25/19 09:10 79 126/68 06/25/19 09:00 Room Air Intake and Output 06/25/19 06/26/19 19:00 07:00 Intake Total 1500 ml 760.0 ml Balance 1500 ml 760.0 ml Intake Oral 450 ml IV Total 800 ml 310.0 ml Other 700 ml # Voids 2 # Bowel Movements 1 Laboratory Tests 06/26/19 05:53: Random Vancomycin Level 13.6 Height (Feet): 5 Height (Inches): 0.00 Weight (Pounds): 120 Objective GENERAL: A well-developed female. NAD HEENT: Negative. Extraocular movements are grossly intact. Oropharynx moist. NECK: Supple. LUNGS: Fairly clear and symmetric. No rhonchi or wheezes. CARDIAC: S1, S2. Regular rate and rhythm without murmurs, rubs, or gallops. ABDOMEN: Soft, nontender, nondistended. no HSM EXTREMITIES: No cyanosis or clubbing. No edema. mild discomfort left writs NEUROLOGICAL: The patient appears to be confused, nonfocal, pleasant SKIN: Noted. Royer Elizondo MD Jun 26, 2019 08:58
[2019-06-26] MEDS ORDERED: Haloperidol Decanoate (Long Acting) 50mg Inj IM ONE (09:00)
[2019-06-26] MEDS ORDERED: Vancomycin 1.25gm/D5W 275ml IVPB SCH ×2 (09:00)
[2019-06-26] MEDS ORDERED: LORazepam Inj 2mg/ml 1ml IM ONE (09:00)
--- NOTE | 2019-06-26 09:10 | NUR ---
PT NOTE Patient continues to be confused and combative, not appropriate for skilled inpatient PT intervention at this time. Will discharge patient from PT and resume when patient is more appropriate to participate with MD resume order for PT. Ayleen MCDERMOTT notified.
[2019-06-26] MEDS: Zinc Sulfate 220mg cap ORAL SCH (09:12)
[2019-06-26] MEDS: Ascorbic Acid 500mg tab ORAL SCH (09:12)
[2019-06-26] MEDS: Calcium Carbonate 500mg w/Vit D 200iu tab ORAL SCH (09:12)
[2019-06-26] MEDS: Heparin 5000 units/ml inj SUBQ SCH ×2 (09:16→20:51)
[2019-06-26] MEDS ORDERED: Haloperidol 5mg/ml Inj IM ONE (09:30)
[2019-06-26] MEDS ORDERED: LORazepam 1mg tab ORAL PRN (12:15)
[2019-06-26] MEDS ORDERED: Levofloxacin 500mg tab ORAL SCH (12:16)
--- NOTE | 2019-06-26 13:50 | NUR ---
HOSPICE CASE MANAGER NOTES PT ACCEPTED TO [facility] ROOM 6 BED B, NURSE TO GIVE REPORT TO [phone]. WAITING FOR PSYCH CLEARANCE.NURSE MADE AWARE TO CALL PSYCH FOR CLEARANCE.
[2019-06-26] MEDS ORDERED: LEVAQUIN500 MG ORAL (14:10)
[2019-06-26] MEDS ORDERED: ATIVAN1 MG ORAL (14:21)
--- NOTE | 2019-06-26 15:29 | NUR ---
DISCHARGE PLANNING DISCHARGE ORDER NOTED Patient has been accepted to; [facility] [address] [place] [address] Bed:6-B Skilled for Nurse to Nurse report [facility] ETA for transportation: 17:45
--- NOTE | 2019-06-26 15:30 | NUR ---
Social Service Note SW received a call from Nita Hernandez [phone] regarding patient's capacity to complete an advance directive. Message left for Dr. Elizondo. Awaiting a response. Patient is anticipated to discharge today, this can be followed up in SNF.
--- NOTE | 2019-06-26 18:30 | Progress Note ---
DATE: 06/26/2019 SUBJECTIVE: The patient was agitated all night, more confused, attempting to come out of bed, combative, and easily agitated, not engaged during the evaluation, poor insight. The patient refused IV access today morning and upon evaluation they were attempting to put IV in. The patient is more cooperative, not able to provide any meaningful information. I received a phone call from the staff nurse last night asking for restrained. I called them back around 3 a.m. and restrain order was given. MENTAL STATUS EXAMINATION: The patient is alert, confused, disoriented. Mood is anxious. Affect is flat. Thought process is concrete. Thought content, no suicidal or homicidal ideation. ASSESSMENT: 1. Acute encephalopathy. 2. Psychotic disorder. PLAN: 1. Continue to restrain. 2. Discontinue the Ambien. 3. Increase Zyprexa to 7.5 mg at bedtime. 4. Continue the bilateral soft restraints. 5. Fluoxetine 20 mg in the morning and Ativan as needed. 6. We will continue to follow and readjust the medication. Theodora Luna M.D. DR: Radha JOB#: [id number] CC:
--- NOTE | 2019-06-26 19:08 | NUR ---
HAND-OFF: Report given to Nicole MCDERMOTT. Report given to SNF nurse Crystal.
--- NOTE | 2019-06-26 19:25 | NUR ---
NURSE NOTES: Received patient in bed, awaiting for a transfer to [facility], report is given to Cyrstal MCDERMOTT. No acute distress noted, VSS, afebrile, call light is within reach, bed is locked, lowered and alarm is on. Will continue to monitor for safety and comfort.
[2019-06-26] MEDS ORDERED: OLANZapine 2.5mg tab ORAL SCH (21:00)
--- NOTE | 2019-06-26 22:34 | General Progress Note ---
Assessment/Plan Assessment/Plan: Assessment - Anemia - OB (-) stools and no Iron deficiency - Azotemia - free water deficit - OBS - HTN - Osteoporosis Recommendations - push po - follow CBC - push fluids - no plans for EGD/Colon per family request Subjective Allergies: Coded Allergies: No Known Allergies (Unverified , 06/22/19) Subjective above noted no events awaiting transfer Objective Last 24 Hour Vital Signs Date Time Temp Pulse Resp B/P (MAP) Pulse Ox O2 Delivery O2 Flow Rate FiO2 06/26/19 21:06 Room Air 06/26/19 20:00 97.2 86 20 157/77 (103) 06/26/19 16:00 98.1 107 20 160/89 (112) 100 06/26/19 15:32 189/81 06/26/19 12:00 97.6 98 19 189/81 (117) 100 06/26/19 09:12 100 145/76 06/26/19 09:00 Room Air 06/26/19 08:00 98.1 107 20 179/92 (121) 98 06/26/19 04:07 97.8 100 20 145/76 (99) 96 06/26/19 00:45 97.8 98 06/26/19 00:00 97.8 95 19 142/79 (100) 98 Intake and Output 06/25/19 06/26/19 18:59 06:59 Intake Total 1500 ml 760.0 ml Balance 1500 ml 760.0 ml Intake Oral 450 ml IV Total 800 ml 310.0 ml Other 700 ml # Voids 2 # Bowel Movements 1 Laboratory Tests 06/26/19 05:53: Random Vancomycin Level 13.6 Height (Feet): 5 Height (Inches): 0.00 Weight (Pounds): 120 Objective Debilitated elderly woman NCAT supple CTA RR Abd soft no edema OBS Hunter Rawls MD Jun 26, 2019 22:34
--- NOTE | 2019-06-26 22:53 | NUR ---
NURSE NOTES: Patient is being transported to SNF via [facility], patient is stable upon discharge.
--- NOTE | 2019-06-27 10:25 | Discharge Summary ---
Discharge Summary Discharge Summary _ DATE OF ADMISSION: 06/22/2019 DATE OF DISCHARGE: 06/26/2019 DISCHARGED BY:Dr. Elizondo REASON FOR ADMISSION: 84 years old female with past medical history of hypertension, dementia, osteoporosis, sepsis, history of wrist fracture, resident of intermediate facility, was noted to be more aggressive and confused, noncompliant with his medications for few days. Patient subsequently was sent for evaluation to emergency department. Patient by herself denied any symptoms. No fever , or chills ; no nausea or vomiting. Vital signs revealed elevated blood pressure 165/66 , otherwise were stable. Laboratory work-up demonstrated no leukocytosis, hemoglobin 10.6, hematocrit 31.3. BUN 21, creatinine 2.0 , chloride 112 , sodium 145. Troponin negative. EKG revealed sinus rhythm , no acute ischemic changes. Urinalysis demonstrated pyuria, +2 leukocyte esterase and moderate bacteria. In emergency department patient started on IV hydration, sedated , started on empiric antibiotic and admitted to Med Surg floor for further management. CONSULTANTS: GI specialist Dr. Rawls psychiatrist [facility]SE: Patient admitted to medical surgical floor and started on IV hydration and empiric antibiotics. CT of the head revealed no acute intracranial process. Urine culture revealed Enterococcus faecalis. DVT and GI prophylaxis provided. Blood pressure was managed with calcium channel norman. GI specialist seen and evaluated patient. Stool for occult blood was negative. Hemoglobin and hematocrit were closely monitored with goal to keep hemoglobin above 7, remained at baseline. Prior to discharge hemoglobin 9.9, hematocrit 30.4. Stool for occult blood was negative. MCV in the 90s. Anemia workup revealed no evidence of iron deficiency anemia, likely anemia of chronic disease. Patient also noted to have acute renal failure , likely due to free water deficit. Renal parameters and electrolytes were closely monitored, creatinine from 2 down to 1.7. Potassium replaced , 3.7 upon discharge. Oral fluids were pushed. Per GI specialist, no plans for EGD or colonoscopy as per family request. Protein supplements implemented in plan fo care as per transplant registered nurse, who stated that this patient had high risk for malnutrition,. Psychiatrist followed. Per psychiatrist, patient had acute encephalopathy and psychotic disorder. Psychiatric medication regimen was optimized as per psychiatrist. Supportive care and reality orientation provided. CT left hand revealed osteoarthritis, generalized soft tissue swelling, involving the wrist, nonspecific. Repeated CT of the head still revealed no acute intracranial bleeding, mass effect or edema; no change from previous CT scan findings. Left temporal encephalomalacia noted with moderate atrophy of the brain. Evidence of chronic small vessel disease, involving white matter tracts. Fall precaution maintained. Patient was working with physical therapist. Patient clinically stabilized. Behavior controlled. Patient was ready for discharge to intermediate facility for continuation of care. FINAL DIAGNOSES: Acute encephalopathy Possible UTI Hypertension Anemia Acute renal failure, likely due to free water deficit Hypernatremia History of wrist fracture Osteoporosis Psychotic disorder Noncompliance DISCHARGE MEDICATIONS: See Medication Reconciliation list. DISCHARGE INSTRUCTIONS: Patient was discharged to the intermediate facility. Follow up with medical doctor at the facility. I have been assigned to dictate discharge summary for this account. I was not involved in the patient's management. Alisha Granados NP Jun 27, 2019 10:25
== END 2019-06-26 22:45 | DRG 689 ==
LOC: EDBD 20:48 → EDBEDREQ 22:06 → EMR 22:29 → 4E 22:49
DX: N39.0 Urinary tract infection, site not specified (principal); G92 Toxic encephalopathy; N17.9 Acute kidney failure, unspecified; E87.0 Hyperosmolality and hypernatremia; E86.0 Dehydration; I10 Essential (primary) hypertension; F03.90 Unspecified dementia, unspecified severity, without behavioral disturbance, psychotic disturbance, mood disturbance, and anxiety; M81.0 Age-related osteoporosis without current pathological fracture; D64.9 Anemia, unspecified; F29 Unspecified psychosis not due to a substance or known physiological condition; Z91.19 Patient's noncompliance with other medical treatment and regimen; B95.2 Enterococcus as the cause of diseases classified elsewhere
CPT/HCPCS: 36415; 70450; 71045; 80048; 80202; 81001; 82270; 82607; 82746; 83540; 83550; 84484; 85025; 87081; 87086; 87181; 93005; 96361; 96365; 96372; 99285; J8499